=== PATIENT | female | born 2000 | race African-American/Black ===

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

== ENCOUNTER 2021-11-27 20:06 | Emergency (ER) | payer OTHER | END 2021-11-27 20:27 | LOC: NAV ERS 20:06 | DX: O9A.212 Injury, poisoning and certain other consequences of external causes complicating pregnancy, second trimester (principal); S09.90XA Unspecified injury of head, initial encounter; O99.352 Diseases of the nervous system complicating pregnancy, second trimester; G40.909 Epilepsy, unspecified, not intractable, without status epilepticus; Z3A.19 19 weeks gestation of pregnancy; Z87.891 Personal history of nicotine dependence; W22.8XXA Striking against or struck by other objects, initial encounter | CPT/HCPCS: 99283 ==